=== PATIENT | male | born 1940 | race Caucasian/White ===

== ENCOUNTER → 2016-05-16 | Outpatient (CLI) | payer MEDICARE ==
[2016-05-16 16:31] LABS: PROTHROMBIN TIME - PATIENT 10.9 SEC (9.8-11.6)
[2016-05-16 17:25] LABS: HEMATOCRIT 43.8 % (39.0-51.0); MEAN CELL VOLUME 101.7 FL (80.0-100.0); MEAN CORPUSCULAR HEMOGLOBIN 34.8 PG (27.0-34.0); MEAN CORPUSCULAR HGB CONC 34.2 % (32.0-36.0); PLATELET COUNT 221 TH/MM3 (150-450); RED BLOOD COUNT 4.31 MIL/MM3 (4.50-5.90); RED CELL DISTRIBUTION WIDTH 13.3 % (11.6-17.2); REVIEW FLAG FINAL; WHITE BLOOD COUNT 4.9 TH/MM3 (4.0-11.0)
[2016-05-16 17:46] LABS: ALT (GPT) 44 U/L (12-78); ANION GAP 3 MEQ/L (5-15); AST (GOT) 41 U/L (15-37); BICARBONATE 29.7 MEQ/L (21.0-32.0); BLOOD UREA NITROGEN 15 MG/DL (7-18); CHLORIDE 106 MEQ/L (98-107); GLOMERULAR FILTRATION RATE 85 ML/MIN (>89); POTASSIUM 4.3 MEQ/L (3.5-5.1); SODIUM (NA) 139 MEQ/L (136-145)
[2016-05-16 17:48] LABS: ALKALINE PHOSPHATASE 78 U/L (45-117)
== END ==
LOC: PLAB 15:42
PROVIDERS: ATTEND Family Medicine
DX: R22.1 Localized swelling, mass and lump, neck (principal)
CPT/HCPCS: 36415; 80053; 85027; 85610

== ENCOUNTER 2016-05-26 12:52 | Day surgery (SDC) | payer MEDICARE ==
[2016-05-26 13:50] VITALS: BP 150/99; PULSE 85; RESP 16; TEMP 97.6; O2SAT 100
[2016-05-26 14:35] VITALS: BP 145/89; PULSE 72; RESP 16; TEMP 98; O2SAT 97
[2016-05-26 14:50] VITALS: BP 151/91; PULSE 72; RESP 16; O2SAT 96
[2016-05-26] MEDS ORDERED: LIDOCAINE HCL 1% PF 30 ML VIAL ONE (15:52)
[2016-05-26] MEDS ORDERED: SODIUM BICARBONATE 8.4% INJ 50 ML ONE (15:52)
--- NOTE | 2016-05-26 15:57 | RADRPT ---
EXAM DATE/TIME: 05/26/2016 13:43 [place] COMPARISON: No previous studies available for comparison. EXTERNAL COMPARISON: [facility], CT SOFT TISSUE NECK, W & W/O CONTRAST, May 16 2016. INDICATIONS : Right neck mass seen on CT. MEDICAL HISTORY : Right neck mass. Lung nodules. SURGICAL HISTORY : Appendectomy. Colonoscopy. ENCOUNTER: Initial ACUITY: 2 weeks PAIN SCORE: 0/10 LOCATION: Right neck ORGAN: Right neck SPECIMENS: Two core specimen(s) submitted for pathologic evaluation. DEVICE: 18 gauge Bio Pince needle Post procedure scanning reveals no hematoma or other complication. The possibility does exist that the tissue obtained will be non-diagnostic. If the sample is non-marichuy gnostic a repeat biopsy or surgical biopsy may need to be performed. TECHNIQUE: 1. Ultrasound guidance for needle biopsy. 2. Needle biopsy. The risks, benefits, and alternatives to ultrasound guided needle biopsy were explained to the patien t in detail including the risk of bleeding and infection. Written and verbal informed consent was ob tained. With the patient on the ultrasound table, images were obtained. Overlying skin was prepped and drape d in the usual sterile fashion and Lidocaine was utilized as a local anesthetic. A needle was advanced into the identified target and the number of specimens as above obtained and zuluaga bmitted for pathologic evaluation. The patient tolerated the procedure well and left the ultrasound suite in stable condition. CONCLUSION: Uncomplicated ultrasound guided needle biopsy of the right neck lymph node periparotid space.. Danyel Rosas MD FACR on May 26, 2016 at 15:55 Board Certified Radiologist. This report was verified electronically.
== END 2016-05-26 14:55 | disposition home or self-care (01) ==
LOC: HRIP 12:52 → HRAD 12:52
PROVIDERS: ATTEND Family Medicine
DX: R22.1 Localized swelling, mass and lump, neck (principal)
CPT/HCPCS: 38505; 76942; 88184; 88185; 88305; 88333; 88341; 88342; 88377

== ENCOUNTER → 2016-06-05 | Outpatient (CLI) | payer MEDICARE ==
[2016-06-05 16:04] LABS: HEMATOCRIT 44.2 % (39.0-51.0); MEAN CELL VOLUME 101.4 FL (80.0-100.0); MEAN CORPUSCULAR HEMOGLOBIN 34.7 PG (27.0-34.0); MEAN CORPUSCULAR HGB CONC 34.2 % (32.0-36.0); PLATELET COUNT 204 TH/MM3 (150-450); RED BLOOD COUNT 4.36 MIL/MM3 (4.50-5.90); RED CELL DISTRIBUTION WIDTH 13.1 % (11.6-17.2); REVIEW FLAG FINAL; WHITE BLOOD COUNT 5.5 TH/MM3 (4.0-11.0)
[2016-06-05 16:16] LABS: ANION GAP 6 MEQ/L (5-15); AST (GOT) 42 U/L (15-37); BICARBONATE 27.7 MEQ/L (21.0-32.0); BLOOD UREA NITROGEN 17 MG/DL (7-18); CHLORIDE 106 MEQ/L (98-107); POTASSIUM 4.1 MEQ/L (3.5-5.1); SODIUM (NA) 140 MEQ/L (136-145)
[2016-06-05 16:23] LABS: ALKALINE PHOSPHATASE 78 U/L (45-117); ALT (GPT) 46 U/L (12-78); GLOMERULAR FILTRATION RATE 80 ML/MIN (>89); LDH SERUM 266 U/L (87-241); TOTAL BILIRUBIN ADULT 0.8 MG/DL (0.2-1.0)
== END ==
LOC: PLAB 12:01
PROVIDERS: ATTEND Family Medicine
DX: C85.11 Unspecified B-cell lymphoma, lymph nodes of head, face, and neck (principal)
CPT/HCPCS: 36415; 80053; 83615; 85027

== ENCOUNTER → 2017-05-11 | Outpatient (CLI) | payer MEDICARE ==
[~2017-05-11] MED LIST: HTN MED; OSEL75 PO; PRED1 PO; [UNRECOGNIZED DRUG - REMARK]
[2017-05-11 12:13] LABS: ALBUMIN 3.6 GM/DL (3.4-5.0); AST (GOT) 47 U/L (15-37); BLOOD UREA NITROGEN 15 MG/DL (7-18); CALCIUM 8.6 MG/DL (8.5-10.1); CHLORIDE 106 MEQ/L (98-107); CHOLESTEROL 200 MG/DL (120-200); GLOMERULAR FILTRATION RATE 82 ML/MIN (>89); GLUCOSE,FASTING 92 MG/DL (74-99); SODIUM (NA) 141 MEQ/L (136-145); TRIGLYCERIDES 53 MG/DL (42-150)
[2017-05-11 12:17] LABS: ALKALINE PHOSPHATASE 85 U/L (45-117); ALT (GPT) 59 U/L (12-78); CHOLESTEROL/ HDL RATIO 2.68 RATIO; HDL CHOLESTEROL 74.4 MG/DL (40.0-60.0); LDL CHOLESTEROL 115 MG/DL (0-99); TOTAL BILIRUBIN ADULT 1.1 MG/DL (0.2-1.0); TOTAL PROTEIN 7.1 GM/DL (6.4-8.2)
== END ==
LOC: PLAB 08:45
PROVIDERS: ATTEND Family Medicine
DX: E78.2 Mixed hyperlipidemia (principal)
CPT/HCPCS: 36415; 80053; 80061

== ENCOUNTER 2017-05-18 13:38 | Emergency (ER) | payer MEDICARE ==
[~2017-05-18] VITALS: Ht 180.3 cm; Wt 86.8 kg
[2017-05-18 13:45] VITALS: BP 127/82; PULSE 101; RESP 16; TEMP 98.7; O2SAT 92
[2017-05-18] MEDS ORDERED: HTN MED (14:56)
[2017-05-18] MEDS ORDERED: PRED1 PO (14:56)
[2017-05-18] MEDS ORDERED: [UNRECOGNIZED DRUG - REMARK] (14:56)
[2017-05-18] MEDS ORDERED: OSEL75 PO (15:48)
--- NOTE | 2017-05-18 15:52 | PD ---
HPI Chief Complaint: Cold / Flu Symptoms Time Seen by Provider: 15:01 Travel History International Travel<30 days: No Contact w/Intl Traveler<30days: No Traveled to known affect area: No History of Present Illness HPI 76-year-old male that presents to the ED for evaluation of cold-like symptoms. Per patient started yesterday. Patient states with his who was recently diagnosed with influenza B and started on Tamiflu last week. He states that he is having the same symptoms she had at the beginning. He denies any recent travel. No history of COPD but all history of Hodgkin's lymphoma having had chemotherapy a year ago and now in remission. Having some productive cough and congestion. No allergies to medication. Has not seen anybody for this. Only sick contact his . States having some lower back pain and body aches. Cough is productive. No shortness of breath. No allergies to medication. No chest pain. Has been taking OTC meds with minimal relief. Pain per patient is 4 out of 10. PFSH Past Medical History Hx Anticoagulant Therapy: No Autoimmune Disease: Yes (CIDP) Cardiovascular Problems: Yes (HTN, CHOL) Diabetes: No Social History Alcohol Use: Yes Tobacco Use: No Substance Use: No Allergies-Medications (Allergen,Severity, Reaction): Coded Allergies: No Known Allergies (Unverified , 05/18/17) Reported Meds & Prescriptions Reported Meds & Active Scripts Active Tamiflu (Oseltamivir Phosphate) 75 Mg Cap 75 Mg PO BID 5 Days Reported [Cholsetrol Med] Unknown Dose [Htn Med] Unknown Dose Prednisone 1 Mg Tab 1 Mg PO EVERY OTHER DAY Review of Systems Except as stated in HPI: all other systems reviewed are Neg Physical Exam Narrative GENERAL: Well-nourished, well-developed patient in no apparent distress. SKIN: Warm and dry. HEAD: Atraumatic. Normocephalic. EYES: Pupils equal and round reactive to light and accommodation. No scleral icterus. No injection or drainage. ENT: No nasal bleeding or discharge. Mucous membranes pink and moist. TMs are clear with no sign of infection or perforation. No mastoid tenderness. Ear canals are intact bilaterally. No lymphadenopathy. Nostril mucosa is red and moist with clear mucus noted. No sinus tenderness to palpation noted. Tonsils are not enlarged or swollen. No ulvua Deviation. Tongue is midline. NECK: Trachea midline. No JVD. No meningeal signs noted CARDIOVASCULAR: Regular rate and rhythm. RESPIRATORY: No accessory muscle use. Clear to auscultation. Breath sounds equal bilaterally. GASTROINTESTINAL: Abdomen soft, non-tender, nondistended. Hepatic and splenic margins not palpable. MUSCULOSKELETAL: Extremities without clubbing, cyanosis, or edema. No obvious deformities. NEUROLOGICAL: Awake and alert. No obvious cranial nerve deficits. Motor grossly within normal limits. Five out of 5 muscle strength in the arms and legs. Normal speech. PSYCHIATRIC: Appropriate mood and affect; insight and judgment normal. Data Data Last Documented VS Vital Signs Date Time Temp Pulse Resp B/P (MAP) Pulse Ox O2 Delivery O2 Flow Rate FiO2 05/18/17 13:45 98.7 101 16 127/82 (97) 92 Orders Orders Influenzae A/B Antigen (05/18/17 15:06) Ed Discharge Order (05/18/17 15:57) MDM Medical Decision Making Medical Screen Exam Complete: Yes Emergency Medical Condition: Yes Medical Record Reviewed: Yes Interpretation(s) flu negative Differential Diagnosis Influenza versus URI versus pneumonia versus bronchitis Narrative Course 76-year-old male that presents to the ED for evaluation of cold like symptoms. Patient was properly examined and was found to have signs and symptoms consistent appears to be likely influenza. Flu test was negative but because of patients symptoms and being close with his who has influenza B recommend treating for possible false negative. I will treat patient with Tamiflu. Told to follow closely with PCP. Take OTC meds as needed. Drink plenty of fluids. See ED worsening symptoms. Diagnosis Primary Impression: Influenza Patient Instructions: General Instructions Additional Instructions: Motrin and Tylenol for pain and fever. You can use [id number] antihistamine as well as well as Mucinex as needed for runny nose and congestion. Cough drops for cough as needed. Drink plenty of fluids. Follow-up with PCP. See ED for worsening symptoms. Med/Other Pt SpecificInfo: Prescription(s) given Scripts Oseltamivir (Tamiflu) 75 Mg Cap 75 MG PO BID for Mgmt Viral Infection for 5 Days, #10 CAP 0 Refills Prov: Zurdo Jamil MD 05/18/17 Disposition: 01 DISCHARGE HOME Condition: Stable Corky Alvarez May 18, 2017 15:52
== END 2017-05-18 16:03 | disposition home or self-care (01) ==
LOC: PHED 13:38 → PHEFT 16:03
DX: J11.1 Influenza due to unidentified influenza virus with other respiratory manifestations (principal); I10 Essential (primary) hypertension; Z85.71 Personal history of Hodgkin lymphoma
CPT/HCPCS: 87804; 99283